=== PATIENT | female | born 1975 | race Asian ===

== ENCOUNTER 2017-06-05 15:14 | Emergency (ER) | payer OTHER ==
[~2017-06-05] VITALS: Ht 162.6 cm; Wt 57.2 kg
[2017-06-05 15:42] VITALS: TEMP 36.3; Ht 162.6 cm; Wt 57.2 kg
--- NOTE | 2017-06-05 17:12 | EMERGENCY ROOM VISIT NOTE ---
History Report prepared by Felix: Tani Castro Under the Supervision of: Julio SegalO. First contact with patient: 16:52 Chief Complaint: ABDOMINAL PAIN Stated Complaint: RIGHT SIDE LOWER BELLY PAIN- VERY PAINFUL Nursing Triage Summary: Pt friend states pt has right lower abdominal pain since this morning, pain is close to her right thigh. Denies urinary symptoms. Denies history of ovarian cysts. Denies N/V/D Maltese History of Present Illness The patient is a 42 year old female who speaks Mandarin and presents to the Emergency Room with complaints of persistent abdominal pain since this morning. When offered the use of translation services, the patient declined and preferred her friend translate for her. The patient's friend translated for the patient. She notes the pain is sometimes constant and sometimes the pain waxes and wanes. She notes the pain stays in one spot and does not radiate. She currently rates her pain an 8/10 in severity. She notes the pain is somewhat relieved when she stands. She has not taken any medication for the pain. She denies any previous symptoms in the past. She denies any fevers, chills, nausea , vomiting, diarrhea, or urinary symptoms. Her LNMP just ended. She denies any chance of . She has had problems in the past with her fallopian tubes. She has a history of minimally invasive surgery in her fallopian tube to fix an occlusion, though she is unable to communicate what type of occlusion. She cannot remember which fallopian tube it was due to the passage of time. She denies any changes to her menstrual cycles. She denies any blood in urine. Source of History: patient, friend (translated) Onset: since this morning Position: abdomen Symptom Intensity: 8/10 Timing: other (persistent) Modifying Factors (Relieving): other (standing) Associated Symptoms: No fevers, No chills, No nausea, No vomiting, No diarrhea, No urinary symptoms Note: She denies any changes to her menstrual cycles. She denies any blood in urine. Review of Systems See HPI for pertinent positives & negatives. A total of 10 systems reviewed and were otherwise negative. 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 Surgical Problems: (1) Previous section Family History FHx: cancer Hypertension Social History Smoking Status: Never Smoker Smokeless Tobacco Use: No Alcohol Use: none Drug Use: none Marital Status: single Housing Status: lives with family Occupation Status: employed Current/Historical Medications Scheduled PRN Tramadol (Ultram), 1-2 TABS PO Q8 PRN for Pain Allergies Coded Allergies: No Known Allergies (Unverified , 06/05/17) Physical Exam Vital Signs Date Time Temp Pulse Resp B/P (MAP) Pulse Ox O2 Delivery O2 Flow Rate FiO2 06/06/17 00:19 66 18 147/89 98 06/05/17 22:53 65 18 120/72 97 Room Air 06/05/17 20:50 69 18 126/86 98 Room Air 06/05/17 19:46 65 18 113/67 98 Room Air 06/05/17 15:42 36.3 70 18 124/78 99 Room Air Physical Exam GENERAL: alert, well appearing, well nourished, no distress, non-toxic EYE EXAM: normal conjunctiva, PERRL and EOM's grossly intact OROPHARYNX: no exudate, no erythema, lips, buccal mucosa, and tongue normal and mucous membranes are moist NECK: supple, no nuchal rigidity, no adenopathy, non-tender LUNGS: Clear to auscultation. Normal chest wall mechanics HEART: no murmurs, S1 normal and S2 normal ABDOMEN: abdomen soft, normo-active bowel sounds, no masses, or guarding. Right suprapubic tenderness and positive rebound. BACK: Back is symmetrical on inspection and there is no deformity, no midline tenderness, no CVA tenderness. SKIN: no rashes and no bruising UPPER EXTREMITIES: upper extremities are grossly normal. LOWER EXTREMITIES: No pitting edema. NEURO EXAM: Normal sensorium, cranial nerves II-XII grossly intact, normal speech, no gross weakness of arms, no gross weakness of legs. Medical Decision & Procedures ER Provider Diagnostic Interpretation: Radiology results have been interpreted by the radiologist and reviewed by me. PELVIC COMPLETE NON OB CLINICAL HISTORY: RLQ pain COMPARISON STUDY: None FINDINGS: The uterus measured 8.4 cm.. The endometrial stripe measured 9 mm. The right ovary measured 3.3 cm maximum dimension with normal vascular flow. The left ovary measured 2.9 cm maximum dimension with normal vascular flow. 1.5 cm left ovarian cyst. Extending between the right ovary and uterus is a tubular structure measuring 7 x 2.5 cm. This potentially relates to a hydrosalpinx.. There is no ultrasonographic evidence of ovarian torsion. It should be noted that ovarian torsion can be present with normal Doppler ultrasonographic findings. There was no evidence of pathologic free pelvic fluid. IMPRESSION: 1. Potential right-sided hydrosalpinx 2. 1.5 cm left ovarian cyst. 3. Normal vascular flow to both ovaries. The above report was generated using voice recognition software. It may contain grammatical, syntax or spelling errors. Electronically signed by: Robb Harris M.D. 06/05/2017 7:55 PM Dictated Date/Time: 06/05/2017 7:53 PM ABD/PELVIS IV CONTRAST ONLY CT DOSE: 286.77 mGy.cm HISTORY: Pain RLQ pain, hydrosalpinx on US TECHNIQUE: Multiaxial CT images of the abdomen and pelvis were performed following the use of intravenous contrast. A dose lowering technique was utilized adhering to the principles of ALARA. COMPARISON STUDY: Ultrasound same date FINDINGS: Lung bases are clear. Liver spleen and pancreas appear unremarkable. Kidneys enhance uniformly. There is no evidence for hydronephrosis. Abdominal bowel pattern is nonobstructive. The appendix is normal. There is a 7 x 2.5 cm linear tubular structure lateral to the uterus on the right. The right ovary is somewhat difficult to define. There is small amount of free fluid within the pelvic cul-de-sac. Uterus is midline. Bladder is midline. This potentially relates to a hydrosalpinx. There are several small left as well as right right ovarian follicular cyst. IMPRESSION: Findings highly suspect for a right-sided hydrosalpinx. 2. Small amount of free fluid within the pelvic cul-de-sac most likely physiologic. 3. Remainder the study is unremarkable. The above report was generated using voice recognition software. It may contain grammatical, syntax or spelling errors. Electronically signed by: Robb Harris M.D. 06/05/2017 8:50 PM Dictated Date/Time: 06/05/2017 8:44 PM Laboratory Results 06/05/17 17:30 Red Blood Count 4.21, Mean Corpuscular Volume 95.2, Mean Corpuscular Hemoglobin 32.8, Mean Corpuscular Hemoglobin Concent 34.4, Mean Platelet Volume 12.3, Neutrophils (%) (Auto) 85.5, Lymphocytes (%) (Auto) 9.9, Monocytes (%) (Auto) 4.1, Eosinophils (%) (Auto) 0.2, Basophils (%) (Auto) 0.1, Neutrophils # (Auto) 8.72, Lymphocytes # (Auto) 1.01, Monocytes # (Auto) 0.42, Eosinophils # (Auto) 0.02, Basophils # (Auto) 0.01 06/05/17 17:30 Test 06/05/17 17:30 06/05/17 17:45 06/05/17 20:30 White Blood Count 10.20 K/uL (4.8-10.8) Red Blood Count 4.21 M/uL (4.2-5.4) Hemoglobin 13.8 g/dL (12.0-16.0) Hematocrit 40.1 % (37-47) Mean Corpuscular Volume 95.2 fL (80-100) Mean Corpuscular Hemoglobin 32.8 pg (25-34) Mean Corpuscular Hemoglobin Concent 34.4 g/dl (32-36) Platelet Count 203 K/uL (130-400) Mean Platelet Volume 12.3 fL (7.4-10.4) Neutrophils (%) (Auto) 85.5 % Lymphocytes (%) (Auto) 9.9 % Monocytes (%) (Auto) 4.1 % Eosinophils (%) (Auto) 0.2 % Basophils (%) (Auto) 0.1 % Neutrophils # (Auto) 8.72 K/uL (1.4-6.5) Lymphocytes # (Auto) 1.01 K/uL (1.2-3.4) Monocytes # (Auto) 0.42 K/uL (0.11-0.59) Eosinophils # (Auto) 0.02 K/uL (0-0.5) Basophils # (Auto) 0.01 K/uL (0-0.2) RDW Standard Deviation 42.7 fL (36.4-46.3) RDW Coefficient of Variation 12.3 % (11.5-14.5) Immature Granulocyte % (Auto) 0.2 % Immature Granulocyte # (Auto) 0.02 K/uL (0.00-0.02) Prothrombin Time 10.6 SECONDS (9.0-12.0) Prothromb Time International Ratio 1.0 (0.9-1.1) Anion Gap 11.0 mmol/L (3-11) Est Creatinine Clear Calc Drug Dose 117.3 ml/min Estimated GFR () 134.9 Estimated GFR (Non- 116.4 BUN/Creatinine Ratio 16.6 (10-20) Calcium Level 9.0 mg/dl (8.5-10.1) Total Bilirubin 0.7 mg/dl (0.2-1) Aspartate Amino Transf (AST/SGOT) 19 U/L (15-37) Alanine Aminotransferase (ALT/SGPT) 20 U/L (12-78) Alkaline Phosphatase 76 U/L (45-117) Total Protein 8.4 gm/dl (6.4-8.2) Albumin 4.2 gm/dl (3.4-5.0) Globulin 4.2 gm/dl (2.5-4.0) Albumin/Globulin Ratio 1.0 (0.9-2) Lipase 92 U/L (73-393) Human Chorionic Gonadotropin, Qual NEG (NEG) Chemistry Specimen Hemolysis Urine Color YELLOW Urine Appearance CLOUDY (CLEAR) Urine pH >= 9.0 (4.5-7.5) Urine Specific [place] 1.019 (1.000-1.030) Urine Protein NEG (NEG) Urine Glucose (UA) NEG (NEG) Urine Ketones NEG (NEG) Urine Occult Blood 1+ (NEG) Urine Nitrite NEG (NEG) Urine Bilirubin NEG (NEG) Urine Urobilinogen NEG (NEG) Urine Leukocyte Esterase NEG (NEG) Urine WBC (Auto) 1-5 /hpf (0-5) Urine RBC (Auto) 10-30 /hpf (0-4) Urine Hyaline Casts (Auto) 1-5 /lpf (0-5) Urine Epithelial Cells (Auto) >30 /lpf (0-5) Urine Bacteria (Auto) NEG (NEG) Urine Renal Epithelial Cells /lpf (0-5) Date/Time Source Procedure Growth Status 06/05/17 22:57 Vaginal Swab Trichomonas Preparation - Final Complete Laboratory results per my review. Medications Administered Medications (Trade) Dose Ordered Sig/Dilcia Route Start Time Stop Time Status Last Admin Dose Admin Ketorolac Tromethamine (Toradol Inj) 30 mg NOW STAT IV 06/05/17 20:37 06/05/17 20:38 DC 06/05/17 20:45 30 MG Fentanyl Citrate (Fentanyl Inj) 50 mcg NOW STAT IV 06/05/17 21:56 06/05/17 21:57 DC 06/05/17 22:01 50 MCG Acetaminophen 100 ml @ 400 mls/hr NOW STAT IV 06/05/17 21:57 06/05/17 22:11 DC 06/05/17 22:02 400 MLS/HR Tramadol HCl (Ultram Tab) 50 mg NOW STAT PO 06/05/17 22:56 06/05/17 22:57 DC 06/05/17 23:02 50 MG Tramadol HCl (Ultram Home Pack) 1 homepack UD ONCE PO 06/06/17 00:00 06/06/17 00:01 DC 06/05/17 23:59 1 HOMEPACK Ketorolac Tromethamine (Toradol Inj) 30 mg NOW STAT IV 06/05/17 23:54 06/05/17 23:55 DC 06/05/17 23:59 30 MG ED Course 1653: The patient was evaluated in room A12B. A complete history and physical exam was performed. 2036: Ordered Toradol 30 mg IV 2144: I reassessed the patient at this time. I updated the patient using the iPad design maker. The patient's pain has worsened. 2150: I spoke with LUPE Gómez. We discussed the patient's case. He recommends performing a pelvic exam on the patient. 6: Ordered Fentanyl Citrate 50 mcg IV 7: Ordered Acetaminophen 100 ml @ 400 mls/hr IV 5: I reassessed the patient at this time. She is comfortable with a pelvic exam once her pain has improved. 8: I reassessed the patient at this time. I performed a pelvic exam. Findings showed: Normal external genitalia. Normal appearing vaginal vault. No blood. Scant normal appearing discharge. No evidence of cervicitis, no CMT, no adnexal tenderness, minimal right adnexal tenderness. No uterine tenderness. 2256: Ordered Tramadol HCl 50 mg PO 3: I spoke with HARMEET Hilliard. The patient is still having pain. 4: Ordered Toradol 30 mg IV 0000: Ordered Tramadol HCl 1 homepack PO Medical Decision Differential diagnoses includes but is not limited to gastritis, peptic ulcer disease, GERD, gallbladder disease, pancreatitis, small bowel obstruction, acute coronary syndrome, pericarditis, ischemic bowel, irritable bowel disease, irritable bowel syndrome, appendicitis, diverticulitis, malignancy, hernia, urinary tract infection, torsion, /ectopic , perforation, trauma, infectious. Extensive time spent with the patient and multiple rechecks done, time spent using the ipad speech and language assistant to help assure patient understood all results and again review her symptoms. Patient's pain most likely secondary to a large right-sided hydrosalpinx. Patient denies any history of pelvic inflammatory disease, STDs, or other pelvic infections. Patient does recall ever being put on antibiotics at the time that she had prior pelvic surgery. Patient given initial pain medications here which helped improve her symptoms. Pelvic exam performed and culture sent as a precaution, patient with no symptoms or exam to otherwise suggest pelvic inflammatory disease. Discussed with patient close follow-up with ASSET SPECIALIST and possible need for surgical intervention. Discussed symptoms to watch and return for. Discussed additional cultures sent and will take 48 hours to result. Patient verbalized understanding of all this was agreeable with plan. No other evidence of additional GI or pathology. Medication Reconcilliation Current Medication List: was personally reviewed by me Blood Pressure Screening Patient's blood pressure: Normal blood pressure Consults Time Called: 2144 Consulting Physician: LUPE Gómez Returned Call: 2150 I spoke with LUPE Gómez. We discussed the patient's case. He recommends performing a pelvic exam on the patient. Impression Primary Impression: Hydrosalpinx Additional Impression: Right lower quadrant abdominal pain Scribe Attestation The scribe's documentation has been prepared under my direction and personally reviewed by me in its entirety. I confirm that the note above accurately reflects all work, treatment, procedures, and medical decision making performed by me. Departure Information Dispostion Home / Self-Care Prescriptions Tramadol (Ultram) 50 Mg Tab 1-2 TABS PO Q8 Y for Pain, #10 TAB Prov: Venus Lorenzo DO 06/05/17 Referrals No Doctor, Assigned (PCP) Khai Dennis, Forms Call Back Authorization, HOME CARE DOCUMENTATION FORM, IMPORTANT VISIT INFORMATION Patient Instructions My [facility] Additional Instructions Please follow-up with the vulnerability assessment analyst this week regarding your swollen fallopian tube. Please avoid sexual intercourse until you are clear by vulnerability assessment analyst. Please monitor your pain for any changes. If you have worsening pain, develop fevers, vomiting, diarrhea, abnormal discharge, abnormal bleeding, trouble urinating, or you have any other new or concerning symptoms, please return to the emergency room. You may use the pain medication as prescribed. Do not take it and drive as it can make you dizzy or sleepy. If you need to drive or be awake during the day, please use tylenol or ibuprofen. Two of the cultures will take 2 days to result. If they are abnormal you will receive a phone call. Problem Qualifiers
[2017-06-05 17:47] LABS: BASO % 0.1 %; BASO ABS # 0.01 K/uL (0-0.2); EOS % 0.2 %; EOS ABS # 0.02 K/uL (0-0.5); HEMATOCRIT 40.1 % (37-47); HEMOGLOBIN 13.8 g/dL (12.0-16.0); IG# 0.02 K/uL (0.00-0.02); LYMPH % 9.9 %; LYMPH ABS # 1.01 K/uL (1.2-3.4); MEAN CELL VOLUME 95.2 fL (80-100); MEAN CORPUSCULAR HEMOGLOBIN 32.8 pg (25-34); MEAN CORPUSCULAR HGB CONC 34.4 g/dl (32-36); MEAN PLATELET VOLUME 12.3 fL (7.4-10.4); MONO % 4.1 %; MONO ABS # 0.42 K/uL (0.11-0.59); NEUT % 85.5 %; NEUT ABS # 8.72 K/uL (1.4-6.5); PLATELET COUNT 203 K/uL (130-400); RED CELL DISTRIBUTION WIDTH CV 12.3 % (11.5-14.5); RED CELL DISTRIBUTION WIDTH SD 42.7 fL (36.4-46.3)
[2017-06-05 18:09] LABS: ALBUMIN 4.2 gm/dl (3.4-5.0); CREATININE 0.54 mg/dl (0.60-1.20); POTASSIUM 3.7 mmol/L (3.5-5.1); TOTAL PROTEIN 8.4 gm/dl (6.4-8.2)
--- NOTE | 2017-06-05 19:56 | DIAGNOSTIC IMAGING REPORT ---
PELVIC COMPLETE NON OB CLINICAL HISTORY: RLQ pain COMPARISON STUDY: None FINDINGS: The uterus measured 8.4 cm.. The endometrial stripe measured 9 mm. The right ovary measured 3.3 cm maximum dimension with normal vascular flow. The left ovary measured 2.9 cm maximum dimension with normal vascular flow. 1.5 cm left ovarian cyst. Extending between the right ovary and uterus is a tubular structure measuring 7 x 2.5 cm. This potentially relates to a hydrosalpinx.. There is no ultrasonographic evidence of ovarian torsion. It should be noted that ovarian torsion can be present with normal Doppler ultrasonographic findings. There was no evidence of pathologic free pelvic fluid. IMPRESSION: 1. Potential right-sided hydrosalpinx 2. 1.5 cm left ovarian cyst. 3. Normal vascular flow to both ovaries. The above report was generated using voice recognition software. It may contain grammatical, syntax or spelling errors. Electronically signed by: Robb Harris M.D. 06/05/2017 7:55 PM Dictated Date/Time: 06/05/2017 7:53 PM
[2017-06-05] MEDS ORDERED: OPTIRAY 320 IV PRN (20:30)
[2017-06-05] MEDS ORDERED: KETOROLAC TROMETHAMINE 30 MG/ML VIAL IV STA ×2 (20:37→23:54)
--- NOTE | 2017-06-05 20:52 | DIAGNOSTIC IMAGING REPORT ---
ABD/PELVIS IV CONTRAST ONLY CT DOSE: 286.77 mGy.cm HISTORY: Pain RLQ pain, hydrosalpinx on US TECHNIQUE: Multiaxial CT images of the abdomen and pelvis were performed following the use of intravenous contrast. A dose lowering technique was utilized adhering to the principles of ALARA. COMPARISON STUDY: Ultrasound same date FINDINGS: Lung bases are clear. Liver spleen and pancreas appear unremarkable. Kidneys enhance uniformly. There is no evidence for hydronephrosis. Abdominal bowel pattern is nonobstructive. The appendix is normal. There is a 7 x 2.5 cm linear tubular structure lateral to the uterus on the right. The right ovary is somewhat difficult to define. There is small amount of free fluid within the pelvic cul-de-sac. Uterus is midline. Bladder is midline. This potentially relates to a hydrosalpinx. There are several small left as well as right right ovarian follicular cyst. IMPRESSION: Findings highly suspect for a right-sided hydrosalpinx. 2. Small amount of free fluid within the pelvic cul-de-sac most likely physiologic. 3. Remainder the study is unremarkable. The above report was generated using voice recognition software. It may contain grammatical, syntax or spelling errors. Electronically signed by: Robb Harris M.D. 06/05/2017 8:50 PM Dictated Date/Time: 06/05/2017 8:44 PM
[2017-06-05] MEDS ORDERED: FENTANYL CITRATE INJ 50 MCG/1 ML 2 ML VIAL IV STA (21:56)
[2017-06-05] MEDS ORDERED: ACETAMINOPHEN IV 100 ML IV STA (21:57)
[2017-06-05] MEDS ORDERED: TRAMADOL HCL 50 MG TAB PO STA (22:56)
[2017-06-05] MEDS ORDERED: TRAM-10 PO (23:33)
[2017-06-06] MEDS ORDERED: TRAMADOL HCL 50 MG HOME PACK PO ONE
[2017-06-06 00:19] VITALS: BP 147/89; PULSE 66; O2SAT 98
== END 2017-06-06 00:23 | disposition home or self-care (01) ==
LOC: C.EDB 15:17 → C.EDA 06-06 00:23
DX: N70.11 Chronic salpingitis (principal); R10.31 Right lower quadrant pain; Z82.49 Family history of ischemic heart disease and other diseases of the circulatory system